=== PATIENT | female | born 1980 | race Caucasian/White ===

== ENCOUNTER 2018-02-07 09:01 | Emergency (ER) | payer SELFPAY ==
[2018-02-07] MEDS ORDERED: Dexamethasone 4 MG TAB ONE (10:00)
== END 2018-02-07 10:25 | disposition home or self-care (01) ==
LOC: ERS 09:01
DX: J01.90 Acute sinusitis, unspecified (principal); R11.0 Nausea; T36.95XA Adverse effect of unspecified systemic antibiotic, initial encounter; N76.0 Acute vaginitis; Z79.899 Other long term (current) drug therapy
CPT/HCPCS: 99283; J8540